=== PATIENT | female | born 1975 | race African-American/Black ===

== ENCOUNTER 2018-01-25 18:17 | Emergency (ER) | payer SELFPAY ==
[2018-01-25 18:30] VITALS: BP 183/106; PULSE 106; RESP 18; O2SAT 95
--- NOTE | 2018-01-25 18:45 | EDPHY ---
H & P Stated Complaint: med clear for nursing home/ wrist pain Time Seen by Provider: 01/25/18 18:45 HPI/ROS: Chief Complaint: Chronic left wrist injury HPI: The patient presents the ED for evaluation of a chronic left wrist injury. She reports she has a history of a tendon injury and is currently wearing a splint. She apparently was being arrested and complained of wrist pain prompting her visit to the emergency department. The patient is now declining any medical evaluation. REVIEW OF SYSTEMS: Neuro: no headache, numbness, weakness Musculoskeletal: as above Skin: no abrasion or lacerations Source: Patient Exam Limitations: No limitations - Personal History LMP (Females 10-55): Unknown Current Tetanus Diphtheria and Acellular Pertussis (TDAP): Unsure - Medical/Surgical History Hx Asthma: Yes Hx Chronic Respiratory Disease: No Hx Diabetes: No Hx Cardiac Disease: No Hx Renal Disease: No Hx Cirrhosis: No Hx Alcoholism: No Hx HIV/AIDS: No Hx Splenectomy or Spleen Trauma: No Other PMH: asthma, surgical umbilical abcess removal - Social History Smoking Status: Never smoked - Physical Exam Exam: The patient is declining a physical exam Constitutional: Initial Vital Signs Heart Rate 106 H 01/25/18 18:26 Respiratory Rate 18 01/25/18 18:26 Blood Pressure 183/106 H 01/25/18 18:26 O2 Sat (%) 95 01/25/18 18:26 O2 Delivery Mode Room Air Allergies/Adverse Reactions: No Known Allergies Allergy (Unverified 04/29/12 20:43) Home Medications: Medication Instructions Recorded Albuterol 5 mg/ml INH [Proventil] 5 mg IH Q2-4PRN #1 btl 05/11/16 predniSONE 60 mg PO DAILY #15 tab 05/11/16 Medical Decision Making ED Course/Re-evaluation: The patient is now declining any physical exam. Her history is significant for a chronic tendon injury involving the left thumb. She is currently immobilized in a splint. She will be given the number of our on-call hand surgeon as she elects to have further local care. Departure - Departure Disposition: Home, Routine, Self-Care Clinical Impression: Sprain of left hand Condition: Good Instructions: Musculoskeletal Pain (ED) Additional Instructions: 1. You have declined an evaluation in the emergency department. 2. Please return to the ED should you reconsider your decision not to have an evaluation. 3. You have also been given the contact number of our on-call orthopedic surgeon if you would like to follow up with a hand specialist. Referrals: Leann Pagan MD [Medical Doctor] - As per Instructions
== END 2018-01-25 18:56 | disposition home or self-care (01) ==
DX: S63.92XA Sprain of unspecified part of left wrist and hand, initial encounter (principal); J45.909 Unspecified asthma, uncomplicated; X58.XXXA Exposure to other specified factors, initial encounter

== ENCOUNTER 2018-02-12 12:52 | Emergency (ER) | payer MEDICAID ==
--- NOTE | 2018-02-12 12:55 | EDPHY ---
H & P Time Seen by Provider: 02/12/18 12:54 - Medical/Surgical History Hx Asthma: Yes Hx Chronic Respiratory Disease: No Hx Diabetes: No Hx Cardiac Disease: No Hx Renal Disease: No Hx Cirrhosis: No Hx Alcoholism: No Hx HIV/AIDS: No Hx Splenectomy or Spleen Trauma: No Other PMH: asthma, surgical umbilical abcess removal - Social History Smoking Status: Never smoked Allergies/Adverse Reactions: No Known Allergies Allergy (Unverified 04/29/12 20:43) Home Medications: Medication Instructions Recorded Albuterol 5 mg/ml INH [Proventil] 5 mg IH Q2-4PRN #1 btl 05/11/16 predniSONE 60 mg PO DAILY #15 tab 05/11/16 Medical Decision Making ED Course/Re-evaluation: CHIEF COMPLAINT: "I have a broken joint that the tendon is fractured" HISTORY OF PRESENT ILLNESS: The patient is a 42 y/o female arriving via EMS complaining of pain from a chronic left injury suffered 4 weeks in [place]. She is currently wearing a splint on that wrist and reports she has a "broken joint " and "tendon fracture" in her wrist. She was seen here 2.5 weeks ago with a similar complaint and left after refusing evaluation. She was advised to follow up with an orthopedist, but she has not done this yet. No other acute complaints or injuries. REVIEW OF SYSTEMS: A 10 point review of systems was performed and is negative with the exception of the elements mentioned in the history of present illness. PHYSICAL EXAM: HR, BP, O2 Sat, RR. Temp noted General Appearance: Alert, well hydrated, appropriate, and non-toxic appearing. Head: Atraumatic without scalp tenderness or obvious injury Eyes: Pupils equal, round, reactive to light and accommodation, EOMI, no trauma , no injection. Throat: Mucus membranes moist. Neck: Supple Respiratory: No distress Cardiovascular: Left radial pulse intact. Good capillary refill all extremities. Musculoskeletal: Normal active ROM of all extremities, atraumatic. Neurological: Alert, appropriate, and interactive. Nonfocal. Skin: No rashes, good turgor, no nodules on palpation. Past medical history: Asthma Past surgical history: Umbilical abscess removal Family history: Noncontributory Social history: From [place]. [facility]. Prior medical records reviewed including ED visit 01/25/18 for left wrist pain. DIFFERENTIAL DIAGNOSIS: The differential diagnosis for the patient's pain included but was not limited to fracture, ligamentous injury, contusion, muscular strain. MEDICAL DECISION MAKING: This is a homeless 42 y/o female who presents with chronic left wrist pain following an injury 4 weeks ago. She has not followed up with the orthopedist she was referred to when seen earlier this month in the ED for the same complaint. No acute findings on exam today. She has a nonfocal neuro exam and no visible trauma. Recommended wearing splint for comfort, ibuprofen for pain, and orthopedic follow up for continued symptoms. Return precautions discussed. Departure - Departure Disposition: Home, Routine, Self-Care Clinical Impression: Left wrist pain Condition: Good Instructions: Wrist Injury (ED) Additional Instructions: 1. Wear splint for comfort. 2. Follow up with orthopedist this week for continued pain. 3. Take 600mg ibuprofen every 6-8 hours as needed for pain over the next few days. Referrals: [facility],. [Clinic] - As per Instructions Cody Ashley MD [Medical Doctor] - As per Instructions Report Scribed for: Frank France Report Scribed by: Sofia Muñoz Date of Report: 02/12/18 Time of Report: 12:57
[2018-02-12 13:20] VITALS: BP 135/81
== END 2018-02-12 13:20 | disposition home or self-care (01) ==
LOC: EDUNIT#
DX: M25.532 Pain in left wrist (principal); J45.909 Unspecified asthma, uncomplicated

== ENCOUNTER 2018-02-28 16:51 | Emergency (ER) | payer MEDICAID ==
[2018-02-28 17:21] VITALS: BP 138/85
--- NOTE | 2018-02-28 17:25 | EDPHY ---
H & P Stated Complaint: left thumb swelling. unk injury 2 weeks ago. wearing a splint Time Seen by Provider: 02/28/18 17:25 HPI/ROS: HPI CHIEF COMPLAINT: Left thumb injury HISTORY OF PRESENT ILLNESS: Very pleasant 42-year-old female states she has no medical history she states in early December she injured her left thumb with a dislocation. She had x-rays and was placed in a thumb spica Velcro splint. She now presents emergency room as she is unable to fully flex her left thumb. And she has swelling to the medial aspect of her left thumb. She is unsure how to further treat this. Her injury was in early December. She never followed up with a hand surgeon. She is concerned she may need surgery to fix her left thumb. Past Medical History: Denies medical history Past Surgical History: Denies surgical history Social History: Denies daily use of drugs alcohol tobacco. Family History: Noncontributory ROS REVIEW OF SYSTEMS: A comprehensive 10 point review of systems is otherwise negative aside from elements mentioned in the history of present illness. Exam Constitutional appears well nontoxic no acute distress triage nursing summary reviewed, vital signs reviewed, awake/alert. Eyes normal conjunctivae and sclera, EOMI, PERRLA. HENT normal inspection, atraumatic, moist mucus membranes, no epistaxis, neck supple/ no meningismus, no raccoon eyes. Respiratory clear to auscultation bilaterally, normal breath sounds, no respiratory distress, no wheezing. Cardiovascular rate normal, regular rhythm, no murmur, no edema, distal pulses normal. Gastrointestinal soft, non-tender, no rebound, no guarding, normal bowel sounds, no distension, no pulsatile mass. Genitourinary no CVA tenderness. Musculoskeletal left hand: The thumb is able to flex at the IP joint. It appears to be fused. There is swelling noted to the left medial aspect of the thumb. Has good cap refill. Warm extremity. No evidence of infection. Appears to be fused possibly from old injury. no midline vertebral tenderness, full range of motion, no calf swelling, no tenderness of extremities, no meningismus, good pulses, neurovascularly intact. Skin pink, warm, & dry, no rash, skin atraumatic. Neurologic awake, alert and oriented x 3, AAOx3, moves all 4 extremities equally, motor intact, sensory intact, CN II-XII intact, normal cerebellar, normal vision, normal speech. Psychiatric normal mood/affect. Heme/Lymph/Immune no lymphadenopathy. Differential Diagnosis: Includes but is not limited to in a particular order tendon injury, tendon rupture, old fracture, nonunion, ongoing fracture. Medical Decision Making: Plan for this patient x-ray of the left thumb. And then will most likely refer to Hand surgery given that this injury happened in early December. Re-evaluation: X-ray reviewed this shows a dislocation fracture of the left thumb. This is an old injury close to 2 months. I did consult Hand surgery I spoke with Dr. Pagan. He recommends thumb spica splint. And follow up with him. This will not be fixed until she has surgical fixation of this. Discussed this with the patient she understands. Source: Patient - Personal History LMP (Females 10-55): Unknown Current Tetanus/Diphtheria Vaccine: Unsure Current Tetanus Diphtheria and Acellular Pertussis (TDAP): Unsure - Medical/Surgical History Hx Asthma: Yes Hx Chronic Respiratory Disease: No Hx Diabetes: No Hx Cardiac Disease: No Hx Renal Disease: No Hx Cirrhosis: No Hx Alcoholism: No Hx HIV/AIDS: No Hx Splenectomy or Spleen Trauma: No Other PMH: asthma, surgical umbilical abcess removal - Social History Smoking Status: Never smoked Constitutional: Initial Vital Signs Temperature (C) 37.7 C 02/28/18 17:19 Heart Rate 84 02/28/18 17:19 Respiratory Rate 16 02/28/18 17:19 Blood Pressure 138/85 H 02/28/18 17:19 O2 Sat (%) 98 02/28/18 17:19 O2 Delivery Mode Room Air Allergies/Adverse Reactions: No Known Allergies Allergy (Unverified 02/28/18 17:19) Home Medications: Medication Instructions Recorded Albuterol 02/12/18 Medical Decision Making - Diagnostics Imaging Results: Imaging Impressions Finger X-Ray 02/28/18 17:29 Impression: Fracture dislocation of the left thumb interphalangeal joint, with impacted oblique intraarticular fracture of the left thumb distal phalanx base. Departure - Departure Disposition: Home, Routine, Self-Care Clinical Impression: Thumb injury Qualifiers: Encounter type: initial encounter Laterality: left Qualified Code(s): S69.92XA - Unspecified injury of left wrist, hand and finger(s), initial encounter Thumb fracture Qualifiers: Encounter type: initial encounter Fracture type: closed Phalanx: distal Fracture alignment: displaced Laterality: left Qualified Code(s): S62.522A - Displaced fracture of distal phalanx of left thumb, initial encounter for closed fracture Condition: Good Instructions: Tendon Rupture (ED) Additional Instructions: 1. Please follow up with Hand surgery. 2. Please call for follow-up appointment 3. Return emergency room if there is worsening symptoms questions or concerns. Referrals: NONE *PRIMARY CARE P,. [Primary Care Provider] - As per Instructions Leann Pagan MD [Medical Doctor] - As per Instructions
== END 2018-02-28 18:31 | disposition home or self-care (01) ==
DX: S62.522A Displaced fracture of distal phalanx of left thumb, initial encounter for closed fracture (principal); J45.909 Unspecified asthma, uncomplicated; X58.XXXA Exposure to other specified factors, initial encounter

== ENCOUNTER 2018-03-07 18:18 | Emergency (ER) | payer MEDICAID ==
[2018-03-07 18:23] VITALS: BP 110/66
--- NOTE | 2018-03-07 18:40 | EDPHY ---
H & P Time Seen by Provider: 03/07/18 18:26 HPI/ROS: CHIEF COMPLAINT: Left thumb pain HISTORY OF PRESENT ILLNESS: Patient was seen in the ER 02/28/2018 for a left thumb injury that happened in early December. She was diagnosed with a fracture of the base of the thumb which will require surgical fixation. She apparently tried to see orthopedics but is having difficulty. REVIEW OF SYSTEMS: No new injury PAST MEDICAL HISTORY: Negative Social history: Moved to [place] 2 weeks ago and [facility] General Appearance: Alert and conversant, cooperative. Decreased range of motion of the left thumb but normal motor sensory and cap refill. No skin changes there. Emergency Department course/MDM: Continue to use thumb-spica splint. Call ED tomorrow to speak to field case manager during the daytime. She does not have a cell phone [facility] Will attempt to have case management try and hook her up with Orthopedics. Smoking Status: Never smoked Constitutional: Initial Vital Signs Temperature (C) 36.6 C 03/07/18 18:21 Heart Rate 80 03/07/18 18:21 Respiratory Rate 16 03/07/18 18:21 Blood Pressure 110/66 03/07/18 18:21 O2 Sat (%) 92 03/07/18 18:21 O2 Delivery Mode Room Air Allergies/Adverse Reactions: No Known Allergies Allergy (Unverified 02/28/18 17:19) Home Medications: Medication Instructions Recorded Albuterol 02/12/18 MDM/Departure - Depart Disposition: Home, Routine, Self-Care Clinical Impression: Injury of thumb, left Qualifiers: Encounter type: subsequent encounter Qualified Code(s): S69.92XD - Unspecified injury of left wrist, hand and finger(s), subsequent encounter Condition: Good Instructions: Splint Care (ED) Additional Instructions: Call [phone] to speak to field case manager for the ED for help in orthopedic followup; you need to do this between 10am and 4pm. Referrals: Leann Pagan MD [Medical Doctor] - As per Instructions
== END 2018-03-07 18:50 | disposition home or self-care (01) ==
DX: S69.92XD Unspecified injury of left wrist, hand and finger(s), subsequent encounter (principal); X58.XXXD Exposure to other specified factors, subsequent encounter

== ENCOUNTER 2018-05-23 10:25 | Emergency (ER) | payer MEDICAID ==
[2018-05-23] MEDS ORDERED: IPRATROPIUM/ALBUTEROL 3 ML DEYVIAL IH ONE (10:53)
--- NOTE | 2018-05-23 10:58 | EDPHY ---
H & P Stated Complaint: SOB Time Seen by Provider: 05/23/18 10:51 HPI/ROS: CHIEF COMPLAINT: Shortness of breath HISTORY OF PRESENT ILLNESS: The patient is a 42-year-old female with a history of asthma who comes to the emergency department stating that she has had shortness of breath over the last few weeks. She thinks that it may be a skunk in the area or porcupine or the weather. She went to the pharmacist to ask for an inhaler but they told her she needed a prescription so she came here. She denies fevers. No chest pain or swelling. REVIEW OF SYSTEMS: Constitutional: denies: chills, fever, recent illness, recent injury EENTM: denies: blurred vision, double vision, nose congestion Respiratory: See HPI Cardiac: denies: chest pain, irregular heart rate, lightheadedness, palpitations Gastrointestinal/Abdominal: denies: abdominal pain, diarrhea, nausea, vomiting, blood streaked stools Genitourinary: denies: dysuria, frequency, hematuria, pain Musculoskeletal: denies: joint pain, muscle pain Skin: denies: lesions, rash, jaundice, bruising Neurological: denies: headache, numbness, paresthesia, tingling, dizziness, weakness Hematologic/Lymphatic: denies: blood clots, easy bleeding, easy bruising Immunologic/allergic: denies: HIV/AIDS, transplant EXAM: GENERAL: Well-appearing, well-nourished and in no acute distress. HEAD: Atraumatic, normocephalic. EYES: Pupils equal round and reactive to light, extraocular movements intact, sclera anicteric, conjunctiva are normal. ENT: TMs normal, nares patent, oropharynx clear without exudates. Moist mucous membranes. NECK: Normal range of motion, supple without lymphadenopathy or JVD. LUNGS: Breath sounds clear to auscultation bilaterally and equal. No wheezes rales or rhonchi. HEART: Regular rate and rhythm without murmurs, rubs or gallops. ABDOMEN: Soft, nontender, normoactive bowel sounds. No guarding, no rebound. No masses appreciated. BACK: No CVA tenderness, no spinal tenderness, step-offs or deformities EXTREMITIES: Normal range of motion, no pitting or edema. No clubbing or cyanosis. NEUROLOGICAL: Cranial nerves II through XII grossly intact. Normal speech, normal gait. 5/5 strength, normal movement in all extremities, normal sensation PSYCH: Normal mood, normal affect. SKIN: Warm, dry, normal turgor, no visible rashes or lesions. Source: Patient Exam Limitations: No limitations - Personal History LMP (Females 10-55): Now Current Tetanus/Diphtheria Vaccine: Unsure Current Tetanus Diphtheria and Acellular Pertussis (TDAP): Unsure - Medical/Surgical History Hx Asthma: Yes Hx Chronic Respiratory Disease: No Hx Diabetes: No Hx Cardiac Disease: No Hx Renal Disease: No Hx Cirrhosis: No Hx Alcoholism: No Hx HIV/AIDS: No Hx Splenectomy or Spleen Trauma: No Other PMH: asthma, surgical umbilical abcess removal - Family History Significant Family History: No pertinent family hx - Social History Smoking Status: Current some day smoker Alcohol Use: Sober Drug Use: None Constitutional: Initial Vital Signs Temperature (C) 36.4 C 05/23/18 10:31 Heart Rate 83 05/23/18 10:31 Respiratory Rate 16 05/23/18 10:31 Blood Pressure 119/71 05/23/18 10:31 O2 Sat (%) 96 05/23/18 10:31 O2 Delivery Mode Room Air Allergies/Adverse Reactions: No Known Allergies Allergy (Verified 05/23/18 10:31) Home Medications: Medication Instructions Recorded Albuterol 02/12/18 Medical Decision Making ED Course/Re-evaluation: The patient is here essentially asking for an inhaler. Will also give her a DuoNeb. Her vital signs are stable. She declines further workup or testing at this time. We discussed indications for returning. Differential Diagnosis: Partial list of the Differential diagnosis considered include but were not limited to; asthma, COPD and although unlikely based on the history and physical exam, I also considered pneumonia, CHF, PE. I discussed these differential diagnoses and the plan with the patient as well as the usual and expected course. The patient understands that the diagnosis is provisional and that in medicine we are not always correct and that further workup is often warranted. Usual and customary warnings were given. All of the patient's questions were answered. The patient was instructed to return to the emergency department should the symptoms at all worsen or return, otherwise to followup with the physician as we discussed. - Data Points Medications Given: Discontinued Medications Albuterol Sulfate (Proventil Inh Prepack) 1 mdi JUNE BRADY ONE Stop: 05/23/18 11:20 Last Admin: 05/23/18 11:23 Dose: 1 mdi Albuterol/Ipratropium (Duoneb) 3 ml IH EDNOW ONE Stop: 05/23/18 10:54 Last Admin: 05/23/18 11:04 Dose: 3 ml Departure - Departure Disposition: Home, Routine, Self-Care Clinical Impression: Exacerbation of asthma Qualifiers: Asthma severity: mild Asthma persistence: intermittent Qualified Code(s): J45.21 - Mild intermittent asthma with (acute) exacerbation Condition: Fair Instructions: Albuterol (By breathing), Asthma (DC) Referrals: NONE *PRIMARY CARE P,. [Primary Care Provider] - As per Instructions [facility],. [Clinic] - As per Instructions
[2018-05-23 11:13] VITALS: BP 128/80
[2018-05-23] MEDS ORDERED: ALBUTEROL INH PREPACK MDI TAKEHOME ONE (11:19)
== END 2018-05-23 11:24 | disposition home or self-care (01) ==
DX: R06.02 Shortness of breath (principal); J45.909 Unspecified asthma, uncomplicated; F17.200 Nicotine dependence, unspecified, uncomplicated

== ENCOUNTER 2018-06-12 | Emergency (ER) | payer MEDICAID | END 2018-06-12 14:37 | disposition home or self-care (01) | DX: J45.31 Mild persistent asthma with (acute) exacerbation (principal) ==

== ENCOUNTER 2018-08-10 15:34 | Emergency (ER) | payer MEDICAID, OTHER ==
[2018-08-10] MEDS ORDERED: LORazepam 1 MG TAB PO ONE (15:54)
[2018-08-10] MEDS ORDERED: OLANZapine DISINTEGR 5 MG TAB PO ONE (15:54)
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
[2018-08-10 16:09] LABS: PLATELET COUNT 280 10^3/uL (150-400)
--- NOTE | 2018-08-11 13:52 | ASMTTCLDSP ---
TLC Discharge Disposition Disposition: Answers: Discharge Disposition Notes: Notes: In consultation with [facility] ED physician, Rishabh Toussaint MD and on-call psychiatrist, Oziel Magallanes MD, both concurred that pt does not appear to meet 27-65 criteria requiring psychiatric hospitalization as pt does not appear to be an imminent risk of harm to self due to a mental illness condition. Was patient given the Answers: Not applicable Inpatient Behavioral Health Prohibited Belongings List while in the ED? Psychiatrist vacating M1 Rishabh Toussaint MD Hold: Date and time M1 hold 08/11/2018 01:50 AM vacated (time format is hh:mm): Type of Hold: Answers: M1/72-hour Hold Hold initiated by: Answers: Police For Transfers, Reason No beds available on [facility] Patient is Being Transferred: Date Signed: 08/11/2018 01:51 PM Electronically Signed By:Jozef Garrett
[2018-08-11 14:05] VITALS: BP 146/101
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
== END 2018-08-11 14:05 | disposition home or self-care (01) ==
DX: F10.920 Alcohol use, unspecified with intoxication, uncomplicated (principal); F20.0 Paranoid schizophrenia; Y90.8 Blood alcohol level of 240 mg/100 ml or more; V03.10XA Pedestrian on foot injured in collision with car, pick-up truck or van in traffic accident, initial encounter; Y92.9 Unspecified place or not applicable; F17.200 Nicotine dependence, unspecified, uncomplicated
CPT/HCPCS: 80305; G0480